=== PATIENT | female | born 1995 | race Caucasian/White ===

== ENCOUNTER → 2019-03-29 07:51 | Outpatient (BNVA) | payer MEDICARE, MEDICAID, SELFPAY | PROVIDERS: Family Provider Nurse Practitioner; PCP Specialist; Referring Provider Nurse Practitioner Family; Visit Provider Specialist | DX: R20.0 Anesthesia of skin (principal); G56.22 Lesion of ulnar nerve, left upper limb | CPT/HCPCS: 95908 ==

== ENCOUNTER 2019-04-13 14:56 | Outpatient (RCR) | payer MEDICARE, MEDICAID, SELFPAY | END 2019-04-14 23:59 | disposition home or self-care (01) | LOC: SOT 14:56 | PROVIDERS: Family Provider Nurse Practitioner; PCP Specialist; Referring Provider Nurse Practitioner Family; Visit Provider Nurse Practitioner Family | DX: R20.2 Paresthesia of skin (principal) | CPT/HCPCS: 97165 ==

== ENCOUNTER 2019-04-15 06:00 | Outpatient (RCR) | payer MEDICARE, MEDICAID, SELFPAY | END 2019-05-01 23:00 | disposition home or self-care (01) | LOC: SOT 06:00 | PROVIDERS: Family Provider Nurse Practitioner; PCP Specialist; Referring Provider Nurse Practitioner Family; Visit Provider Nurse Practitioner Family | DX: R20.2 Paresthesia of skin (principal) | CPT/HCPCS: 97110 ==

== ENCOUNTER 2019-10-15 17:23 | Emergency (ER) | payer MEDICARE, MEDICAID, SELFPAY ==
[2019-10-15 17:44] VITALS: BP 109/81; PULSE 109; RESP 18; TEMP 36.9; O2SAT 99; BMI 20.7
[2019-10-15 18:05] VITALS: BP 117/94; PULSE 104; RESP 19; O2SAT 100
--- NOTE | 2019-10-15 18:10 | XRR_ITS ---
PROCEDURE INFORMATION: Exam: XR Chest, 1 View Exam date and time: 10/15/2019 6:12 PM Age: 24 years old Clinical indication: Chest pain; Type not specified; Additional info: Cp TECHNIQUE: Imaging protocol: XR of the chest Views: 1 view. COMPARISON: CR Chest 2 views* [id number] 10/02/2014 1:35 PM FINDINGS: Lungs: Unremarkable. No consolidation. Pleural space: Unremarkable. No pleural effusion. No pneumothorax. Heart/Mediastinum: Unremarkable. No cardiomegaly. Bones/joints: Unremarkable. XR/XR chest 1V portable [id number] IMPRESSION: No acute findings.
--- NOTE | 2019-10-15 18:11 | ECG_ITS ---
[facility] Test Date: 2019-10-15 Pat Name: Yossi Schumacher Department: Room: Gender: Female Manager Drug: : 1995 Requested By: Sandra Bell Order Number: [id number] Barton MD: Riaz Painter M.D. Measurements Intervals [place] Rate: 112 P: 63 TN: 92 QRS: -11 QRSD: 107 T: 97 QT: 288 QTc: 395 Interpretive Statements SINUS TACHYCARDIA WITH SHORT TN INTERVAL. Some features of WPW LOW QRS VOLTAGE IN PRECORDIAL LEADS [QRS DEFLECTION < 1.0 mV IN CHEST LEADS] POSSIBLE RIGHT VENTRICULAR CONDUCTION DELAY [RSR (QR) IN V1/V2] LEFT VENTRICULAR HYPERTROPHY AND ST-T CHANGE [VOLTAGE CRITERIA PLUS ST/T ABNORMALITY] LATERAL MYOCARDIAL INFARCTION [40+ ms Q WAVE AND/OR ST/T ABNORMALITY IN I/aVL/V5/V6], OF INDETERMINATE AGE INTERPRETATION BASED ON A DEFAULT AGE OF 40 YEARS Compared to ECG 10/02/2014 12:16:00 Low QRS voltage now present ST (T wave) deviation still present Myocardial infarct finding still present Electronically Signed On 10-16-2019 9:29:09 CDT by Riaz Painter M.D. [id number]
[2019-10-15 18:25] LABS: Basophils # 0.1 10^3/uL (0.0-0.1); Basophils % 0.4 %; Eosinophils # 0.4 10^3/uL (0.0-0.8); Eosinophils % 2.5 %; Hematocrit 40.5 % (37.0-47.0); Hemoglobin 13.2 g/dL (11.5-15.3); Lymphocytes # 2.7 10^3/uL (0.8-4.8); Lymphocytes % 15.6 %; Mean Corpuscular HGB Conc 32.6 g/dL (30.0-36.0); Mean Corpuscular Hemoglobin 30.9 pg (28.0-34.0); Mean Corpuscular Volume 94.8 fL (81-99); Mean Platelet Volume 11.4 fL (7.4-10.4); Neutrophils # 12.82 10^3/uL (1.8-7.7); Nucleated Red Blood Cells % 0 %; Platelet Count 254 10^3/cmm (130-400); Red Blood Count 4.27 10^6/uL (4.1-5.3); White Blood Count 17.1 10^3/uL (4.0-10.0)
[2019-10-15 18:42] LABS: D Dimer 0.42 ug/mIFEU (0-0.59)
[2019-10-15 18:43] LABS: Alanine Aminotransferase 13 U/L (0-33); Albumin Level 4.7 g/dL (3.5-5.2); Alkaline Phosphatase 66 IU/L (35-105); Aspartate Amino Transferase 19 U/L (0-32); Blood Urea Nitrogen 15 mg/dL (6-20); Calcium 9.1 mg/dL (8.5-10.5); Carbon Dioxide 27 mmol/L (22-29); Chloride 102 mmol/L (98-107); Globulin 2.7 g/dL (1.3-4.6); Glomerular Filtration Rate 121.8 mL/min (90-130); Glucose 99 mg/dL (65-115); Magnesium 2.2 mg/dL (1.7-2.3); Osmolality Calculated 280 mOsm/kg (285-295); Sodium 137 mmol/L (136-145); Total Bilirubin 0.2 mg/dL (0.15-1.2); Total Protein 7.4 g/dL (6.6-8.7)
[2019-10-15 18:44] LABS: Troponin(5th) Baseline 6 ng/L (0-10)
[2019-10-15 18:51] LABS: Urine Color Yellow (Yellow)
[2019-10-15 18:52] LABS: Add Urine Microscopic? YES; Bilirubin Urine Neg (NEGATIVE); Blood Urine Neg (Negative); Glucose Urine UA Norm (Normal); Ketones Urine Negative (Negative); Leukocyte Esterase Urine Negative (Negative); Nitrate Urine Negative (Negative); Protein Urine Neg (Negative); Sulfosalicylic Acid Urine Negative (Negative); Urine Appearance SL Hazy (CLEAR); Urobilinogen Urine 1 mg/dL (Negative); pH Urine 8 (5-7)
--- NOTE | 2019-10-15 18:52 | ED_ITS ---
HPI - Chest Pain General: Chief Complaint: Chest Pain Stated Complaint: cp Time Seen by Provider: 10/15/19 18:04 Source: patient and family Mode of arrival: ambulatory Limitations: no limitations History of Present Illness: HPI narrative: Yossi is a nice 24-year-old female brought in by her grandmother with a report of upper chest pain. The patient states she has the pain when she moves in certain positions and when she takes a deep breath. She does not have any other associated symptoms such as radiation of her pain, diaphoresis, nausea/vomiting, worsening with exertion, syncope or near syncope, or any other associated symptoms. When asked if she has any trauma she denies any injury but states the day before she was helping move some furniture in the home. She denies falling or injuring this area. She does states she has more pain when she moves her chest in certain positions and again when she takes a deep breath. She denies being on control or having any leg pain or swelling. She denies any cough, fever, chills or hemoptysis. She denies have anything like this before and she is not tried any thing for this at home. Her symptoms started today. Associated symptoms: Deny abdominal pain, diaphoresis, dyspnea, fever(s), nausea, palpitations, syncope or vomiting Review of Systems Const: Denies: fever(s), chills, body aches, fatigue, malaise or diaphoresis Eyes: Denies: change in vision, blurry vision, blind spots, photophobia, eye discharge or eye redness ENMT: Denies: throat pain, odynophagia, hoarseness, swelling of lips/tongue, oral sores, ear or mastoid pain, ear discharge, change in hearing or nasal discharge Card: Reports: chest pain; Denies: palpitations, irregular heart rhythm, edema, lightheadedness, syncope, pre-syncope, dyspnea on exertion or orthopnea Resp: Denies: dyspnea, productive cough, non-productive cough, wheezing, hemoptysis or chest congestion GI: Denies: abdominal pain, nausea, vomiting, hematemesis, coffee ground emesis, heartburn, diarrhea, constipation, GI cramping, hematochezia or melena : Denies: flank pain, dysuria, urinary frequency, urinary urgency or hematuria Musc: Denies: neck pain, back pain, extremity pain, extremity swelling, joint pain, joint swelling, joint redness, joint warmth or joint stiffness Skin/Breast: Denies: rash, pruritus, erythema, skin tenderness or jaundice Neuro: Denies: headache(s), numbness in extremities, weakness in extremities, sensory changes, lack of coordination, difficulty walking, dizziness, vertigo, confusion, Slurred speech present or seizure-like activity Junior/Lymph: Denies: easy bruising, easy bleeding, petechiae, purpura or enlarged lymph nodes All/Imm: Denies: urticaria, throat swelling, tongue swelling, facial swelling or acute wheezing PFSH ED PFSH: Medical History Asperger syndrome Ulnar neuropathy at elbow of left upper extremity Surgical History No pertinent past surgical history Social History Smoking and tobacco status: never smoked Substance/Drug Use: never Physical Exam Const: COMMON NORMALS: no acute distress, patient oriented x3, no limitations, healthy appearing and well nourished GENERAL APPEARANCE: cooperative, well kempt and well developed HENMT: COMMON NORMALS: normocephalic, atraumatic, external ears normal, EAC's normal and Normal external nose present HEAD & SCALP: normal to inspection, normocephalic and atraumatic FACE & SINUS: normal facial exam and face symmetric NOSE: Normal external nose present and Normal nares present EXTERNAL EAR: Yes external ears normal EXTERNAL AUDITORY CANAL: EAC's normal MOUTH: Normal oral and palatal mucosa present, lip normal and tongue normal Eye: COMMON NORMALS: Equal, round and reactive pupils present and conjunctivae normal GENERAL EYE: appearance normal, both eyes and all related structures ALIGNMENT: Yes alignment normal PERIORBITAL: periorbital findings normal EYELID: eyelids normal CONJUNCTIVA: Yes conjunctivae normal SCLERA: sclerae normal PUPIL: Yes Equal, round and reactive pupils present Neck/C-Spine: COMMON NORMALS: full ROM, no lymphadenopathy, supple, no meningeal signs and no JVD GENERAL: Yes normal visual inspection and Yes trachea midline Chest: COMMONS NORMALS: normal inspection of the chest and normal palpation of entire chest wall (Patient's area of pain is the manubrium but pain cannot be reproduced with palpation.) Resp: COMMON NORMALS: normal respiratory effort, No retractions and No use of accessory muscles EFFORT & INSPECTION: Yes able to speak in complete sentences and Yes symmetric chest movement AUSCULTATION: no crackles, no r ales, no rhonchi and no wheezes Cardio: COMMON NORMALS: no JVD, regular rate, regular rhythm, S1 normal heart sound present and S2 normal heart sound present RATE: regular rate RHYTHM: regular rhythm HEART SOUNDS: S1 normal heart sound present, S2 normal heart sound present, no click, no gallops, no murmurs, no rubs and abnormal split S2 GI: COMMON NORMALS: Soft to palpation and No hepatosplenomegaly present PALPATION: Yes Soft to palpation, No Tenderness to palpation present (GI), No Guarding due to palpation present (GI), No Rigid due to palpation, Yes No hepatosplenomegaly present, No Hernia present, No Palpable mass present and No Pulsatile mass present : COMMON NORMALS: Yes no CVA tenderness BLADDER/KIDNEY EXAM: Yes no CVA tenderness EXTERNAL FEMALE EXAM: No Hernia present Back/Pelvis: COMMON NORMALS: no CVA tenderness, thoracic and lumbar spine normal to inspection, no thoracic nor lumbar tenderness and thoraco-lumbar ROM normal Extremity: COMMON NORMALS: normal to inspection, full ROM, capillary refill normal, no joint enlargement, no clubbing, cyanosis or edema and no calf tend erness Neuro: COMMON NORMALS: patient oriented x3, CN's II-XII intact bilaterally, moves all extremities, no focal motor deficits and no sensory deficits noted MENINGEAL SIGNS: Yes no meningeal signs SPEECH: speech normal Psych: COMMON NORMALS: mental status grossly normal, Normal thought process present, cooperative, normal affect, speech normal and activity/motor behavior normal APPEARANCE: Yes well kempt SPEECH: Yes normal speech THOUGHT PROCESS: Normal thought process present Skin: COMMON NORMALS: no rashes or lesions noted, turgor normal, no jaundice, no petechiae and no mottling GENERAL SKIN EXAM: no rashes or lesions noted and turgor normal Course Vital Signs: Vital signs: Vital Signs Temperature 98.4 F 10/15/19 17:44 Pulse Rate 70 10/15/19 20:42 Respiratory Rate 16 10/15/19 20:42 Blood Pressure 119/87 10/15/19 20:42 Pulse Oximetry 97 10/15/19 20:42 MDM - Chest Pain MDM Narrative: Medical decision making narrative: Yossi is a nice 24-year-old female who comes in complaining of pain when she takes a deep breath and moves her chest in certain positions. She has no history of trauma but was lifting heavy furniture the day before. Patient has minimal if any pain at rest. She has no cough, no fever, no shortness of breath or any other cardiac sounding symptoms. Her pain is described as sharp. Her chest x-ray was abnormal and evaluating her chest x-ray her clavicles looked displaced but when I went back to reexamine her she did not have reproduction of her pain with pressure on her chest. 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 There is no sign of acute problem but there was a suggestion of development of problems later in life. Did check the patient's left pulse and it was found to be normal. I referred the patient to Dr. Orellana and he can return opinion as to when and what will need to be done in regards to this. Patient does not have anything cardiac sounding but her EKGs were performed. 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 The patient does not have a history of tachydysrhythmias, syncope or near syncope. Dr. Painter did review the first EKG and thought that she could follow-up on an outpatient basis. I have reviewed all this with the patient and her grandmother and they are in agreement. They will follow-up as directed or return here if needed. At this time though she is feeling better and is ready to go home. I did review with him the signs and symptoms for which to return to the hospital and they ag ree to do so if necessary. Otherwise they are very grateful and ready to follow-up on an outpatient basis. Lab Data: Attestation: I reviewed the patient's lab results. Labs: Lab Results 10/15/19 10/15/19 10/15/19 Range/Units 18:05 18:12 18:12 WBC 17.1 H (4.0-10.0) 10^3/ uL RBC 4.27 (4.1-5.3) 10^6/u L Hgb 13.2 (11.5-15.3) g/dL Hct 40.5 (37.0-47.0) % MCV 94.8 (81-99) fL MCH 30.9 (28.0-34.0) pg MCHC 32.6 (30.0-36.0) g/dL RDW 12.0 L (12.1-15.1) % Plt Count 254 (130-400) 10^3/c mm MPV 11.4 H (7.4-10.4) fL Neut % (Auto) 75.0 % Lymph % (Auto) 15.6 % [place] % (Auto) 6.0 % Eos % (Auto) 2.5 % Baso % (Auto) 0.4 % Neut # (Auto) 12.82 H (1.8-7.7) 10^3/u L Lymph # (Auto) 2.7 (0.8-4.8) 10^3/u L [place] # (Auto) 1.0 H (0.2-0.9) 10^3/u L Eos # (Auto) 0.4 (0.0-0.8) 10^3/u L Baso # (Auto) 0.1 (0.0-0.1) 10^3/u L Nucleated RBC % (a uto) 0 % Nucleated RBCs # 0.0 /100WBC D-Dimer 0.42 (0-0.59) ug/mIFE U Sodium (136-145) mmol/L Potassium (3.5-5.1) mmol/L Chloride (98-107) mmol/L Carbon Dioxide (22-29) mmol/L Anion Gap (5-19) BUN (6-20) mg/dL Creatinine (0.5-0.9) mg/dL GFR Calculation (90-130) mL/min Glucose (65-115) mg/dL Calculated Osmolal ity (285-295) mOsm/k g Lactic Acid (0.5-2.2) mmol/L Calcium (8.5-10.5) mg/dL Magnesium (1.7-2.3) mg/dL Total Bilirubin (0.15-1.2) mg/dL AST (0-32) U/L ALT (0-33) U/L Alkaline Phosphata se (35-105) IU/L Troponin T Baselin e (0-10) ng/L Total Protein (6.6-8.7) g/dL Albumin (3.5-5.2) g/dL Globulin (1.3-4.6) g/dL HCG, Qual Negative (Negative) Urine Color (Yellow) Urine Appearance (CLEAR) Urine pH (5-7) Ur Specific Gravit y (1.005-1.030) Urine Protein (Negative) Urine Glucose (UA) (Normal) Urine Ketones (Negative) Urine Blood (Negative) Urine Nitrate (Negative) Urine Bilirubin (NEGATIVE) Prot Sulfosalicyli c Acd (Negative) Urine Urobilinogen (Negative) mg/dL Ur Leukocyte Diane ase (Negative) Urine RBC (0-2) /hpf Urine WBC (0-5) /hpf Ur Squamous Epith Cells (0-5) Amorphous Sediment Urine Bacteria (NONE) Urine Mucus 10/15/19 10/15/19 10/15/19 Range/Units 18:12 18:12 18:25 WBC (4.0-10.0) 10^3/ uL RBC (4.1-5.3) 10^6/u L Hgb (11.5-15.3) g/dL Hct (37.0-47.0) % MCV (81-99) fL MCH (28.0-34.0) pg MCHC (30.0-36.0) g/dL RDW (12.1-15.1) % Plt Count (130-400) 10^3/c mm MPV (7.4-10.4) fL Neut % (Auto) % Lymph % (Auto) % [place] % (Auto) % Eos % (Auto) % Baso % (Auto) % Neut # (Auto) (1.8-7.7) 10^3/u L Lymph # (Auto) (0.8-4.8) 10^3/u L [place] # (Auto) (0.2-0.9) 10^3/u L Eos # (Auto) (0.0-0.8) 10^3/u L Baso # (Auto) (0.0-0.1) 10^3/u L Nucleated RBC % (a uto) % Nucleated RBCs # /100WBC D-Dimer (0-0.59) ug/mIFE U Sodium 137 (136-145) mmol/L Potassium 4.0 (3.5-5.1) mmol/L Chloride 102 (98-107) mmol/L Carbon Dioxide 27 (22-29) mmol/L Anion Gap 12.0 (5-19) BUN 15 (6-20) mg/dL Creatinine 0.6 (0.5-0.9) mg/dL GFR Calculation 121.8 (90-130) mL/min Glucose 99 (65-115) mg/dL Calculated Osmolal ity 280 L (285-295) mOsm/k g Lactic Acid (0.5-2.2) mmol/L Calcium 9.1 (8.5-10.5) mg/dL Magnesium 2.2 (1.7-2.3) mg/dL Total Bilirubin 0.2 (0.15-1.2) mg/dL AST 19 (0-32) U/L ALT 13 (0-33) U/L Alkaline Phosphata se 66 (35-105) IU/L Troponin T Baselin e 6 (0-10) ng/L Total Protein 7.4 (6.6-8.7) g/dL Albumin 4.7 (3.5-5.2) g/dL Globulin 2.7 (1.3-4.6) g/dL HCG, Qual (Negative) Urine Color Yellow (Yellow) Urine Appearance Sl hazy (CLEAR) Urine pH 8 H (5-7) Ur Specific Gravit y 1.010 (1.005-1.030) Urine Protein Neg (Negative) Urine Glucose (UA) Norm (Normal) Urine Ketones Negative (Negative) Urine Blood Neg (Negative) Urine Nitrate Negative (Negative) Urine Bilirubin Neg (NEGATIVE) Prot Sulfosalicyli c Acd Negative (Negative) Urine Urobilinogen 1 H (Negative) mg/dL Ur Leukocyte Diane ase Negative (Negative) Urine RBC None (0-2) /hpf Urine WBC None (0-5) /hpf Ur Squamous Epith Cells 0-4 H (0-5) Amorphous Sediment Not Reportable Urine Bacteria 1+ H (NONE) Urine Mucus 1+ 08/02/20 Range/Units 18:42 WBC (4.0-10.0) 10^3/ uL RBC (4.1-5.3) 10^6/u L Hgb (11.5-15.3) g/dL Hct (37.0-47.0) % MCV (81-99) fL MCH (28.0-34.0) pg MCHC (30.0-36.0) g/dL RDW (12.1-15.1) % Plt Count (130-400) 10^3/c mm MPV (7.4-10.4) fL Neut % (Auto) % Lymph % (Auto) % [place] % (Auto) % Eos % (Auto) % Baso % (Auto) % Neut # (Auto) (1.8-7.7) 10^3/u L Lymph # (Auto) (0.8-4.8) 10^3/u L [place] # (Auto) (0.2-0.9) 10^3/u L Eos # (Auto) (0.0-0.8) 10^3/u L Baso # (Auto) (0.0-0.1) 10^3/u L Nucleated RBC % (a uto) % Nucleated RBCs # /100WBC D-Dimer (0-0.59) ug/mIFE U Sodium (136-145) mmol/L Potassium (3.5-5.1) mmol/L Chloride (98-107) mmol/L Carbon Dioxide (22-29) mmol/L Anion Gap (5-19) BUN (6-20) mg/dL Creatinine (0.5-0.9) mg/dL GFR Calculation (90-130) mL/min Glucose (65-115) mg/dL Calculated Osmolal ity (285-295) mOsm/k g Lactic Acid 0.6 (0.5-2.2) mmol/L Calcium (8.5-10.5) mg/dL Magnesium (1.7-2.3) mg/dL Total Bilirubin (0.15-1.2) mg/dL AST (0-32) U/L ALT (0-33) U/L Alkaline Phosphata se (35-105) IU/L Troponin T Baselin e (0-10) ng/L Total Protein (6.6-8.7) g/dL Albumin (3.5-5.2) g/dL Globulin (1.3-4.6) g/dL HCG, Qual (Negative) Urine Color (Yellow) Urine Appearance (CLEAR) Urine pH (5-7) Ur Specific Gravit y (1.005-1.030) Urine Protein (Negative) Urine Glucose (UA) (Normal) Urine Ketones (Negative) Urine Blood (Negative) Urine Nitrate (Negative) Urine Bilirubin (NEGATIVE) Prot Sulfosalicyli c Acd (Negative) Urine Urobilinogen (Negative) mg/dL Ur Leukocyte Diane ase (Negative) Urine RBC (0-2) /hpf Urine WBC (0-5) /hpf Ur Squamous Epith Cells (0-5) Amorphous Sediment Urine Bacteria (NONE) Urine Mucus Imaging Data^: CXR: My impression: No pneumothorax or hemothorax. Normal heart size and normal mediastinum. Questionable mid clavicle displacement on the left. EKG Data^: EKG 1: Attestation: I personally reviewed and interpreted this EKG as follows: EKG interpretation date: 10/15/19 EKG interpretation time: 17:51 Interpretation: Sinus tachycardia at 112 beats a minute, short DE interval, delta wave present, incomplete right bundle branch block, no acute ST or T wave changes. 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 EKG 2: Attestation: I personally reviewed and interpreted this EKG as follows: EKG interpretation date: 10/15/19 EKG interpretation time: 20:30 Interpretation: Normal sinus rhythm at 86 beats a minute, short DE interval, delta wave present, Q waves inferiorly, no acute ST or T wave changes. Discharge Plan Discharge Patient Disposition: Home Clinical Impression: Xtgsk-Ehsmxween-Haiba (WPW) pattern Chest pain Qualifiers: Chest pain type: chest pain on breathing Qualified Code(s): R07.1 - Chest pain on breathing Condition: Stable Prescriptions: [place] 5-325 mg tablet 1 tab PO Q6H PRN (Reason: pain) 5 Days Qty: 10 RF: 0 Motrin IB 200 mg tablet 400 mg PO Q6H PRN (Reason: pain) Qty: 60 RF: 0 No Action Strattera 60 mg Capsule 60 mg PO DAILY RF: 0 Discharge Orders: Discharge Order (Routine); Ordered 10/15/19 Ordered By: Sandra Hurtado Referrals: OLIVIA WILD DO [Primary Care Provider] - Riaz Painter MD [Physician] - 1-3 days Kenneth Orellana MD [Physician] - 1-3 days Discharge Diet: Usual diet Discharge Activity: Increase activity as tolerated Patient Instructions: Chest Pain (ED) Activity Restrictions/Additional Instructions: Please return to the ER immediately for any of the signs or symptoms listed on your discharge instruction sheets, worsening/changing of your symptoms, you are not getting better as quickly as expected, or for ANY other cause or concerns. Return to the ER for shortness of breath, worsening pain, numbness or weakness in your arms, or for any other cause for concern. Be certain to follow-up with Dr. Orellana as soon as possible for further evaluation and care. Be certain to follow-up with Dr. Painter concerning your abnormal EKG. If you develop fainting spells or near fainting spells or a rapid heartbeat please return to the ER immediately for recheck. Discharge Date/Time: 10/15/19 20:43 Coding Level of Care Code ED Environmental Law Professor for Mamta Fwyaneli Exam Comprehensive
[2019-10-15 18:53] LABS: Bacteria Urine 1+; Mucus Urine 1+; Squamous Epithelial Cell Urine 0-4 (0-5)
[2019-10-15 18:54] LABS: Add Urine Culture? No
[2019-10-15] MEDS: sodium chloride 0.9% 1,000 ML 100 ML IV (18:56)
--- NOTE | 2019-10-15 18:56 | CTR_ITS ---
PROCEDURE INFORMATION: Exam: CT Chest With Contrast Exam date and time: 10/15/2019 7:15 PM Age: 24 years old Clinical indication: Sternal or substernal pain; Patient HX: C/O sternal cp today; Additional info: Trauma TECHNIQUE: Imaging protocol: Computed tomography of the chest with intravenous contrast. Radiation optimization: All CT scans at this facility use at least one of these dose optimization techniques: automated exposure control; mA and/or kV adjustment per patient size (includes targeted exams where dose is matched to clinical indication); or iterative reconstruction. Contrast material: OMNI 300; Contrast volume: 75 ml; Contrast route: INTRAVENOUS (IV); COMPARISON: CR (CHEST, ) 10/15/2019 6:22 PM RADIATION DOSE METRICS: Total DLP (mGy-cm): 170.21 FINDINGS: Lungs: Unremarkable. No consolidation. No masses. Pleural space: Unremarkable. No pneumothorax. No pleural effusion. Heart: Unremarkable. No cardiomegaly. No pericardial effusion. Mediastinal space: There is no fluid or induration of the fat adjacent to these structures to indicate leak, hematoma or reactive changes at this time. Aorta: Unremarkable. No aortic aneurysm. Lymph nodes: Unremarkable. No enlarged lymph nodes. Liver: A few tiny hepatic hypodensities are noted and are too small to characterize. 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 The sternum is enlarged and has a broad flat appearance with the distal foramen. The manubrium is also enlarged, thickened and tilted posteriorly. 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 There is also contour deformity of the chest wall with outward bulging of the right ribs at the costochondral junction due to the tilting of the sternum. No acute rib fracture is identified. No scoliosis. The thoracic vertebral body heights are maintained. Note is made that the posterior depression of the manubrium results in marked posterior displacement of the left sternoclavicular joint which results in posterior displacement of the left subclavian vein and posterior displacement and kinking of the aortic arch as seen on series 2, images 12-15. Soft tissues: Unremarkable. CT/CT chest w con* [id number] IMPRESSION: 1. 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 No acute bony abnormality. 2. The marked deformity of the sternum especially the left sternoclavicular joint and manubrium results in posterior displacement and mass effect on the left subclavian vein and aortic arch. No evidence of acute abnormality involving the structures but consultation with cardiothoracic surgeon is recommended given that this may eventually create problems over time. Radiation Dose CTDIVOL = (mGy): DLP = 170.21 (mGy-cm)
[2019-10-15 19:05] LABS: Lactic Sepsis W/Reflex 0.6 mmol/L (0.5-2.2)
[2019-10-15 19:10] LABS: HCG, Serum Qual Negative (Negative)
[2019-10-15] MEDS: iohexol 300 mg/mL 100 mL Btl IV (19:33)
--- NOTE | 2019-10-15 20:11 | ECG_ITS ---
[facility] Test Date: 2019-10-15 Pat Name: Yossi Schumacher Department: Room: Gender: Female Licensed Marriage And Family Therapist: : 1995 Requested By: Sandra Bell Order Number: [id number] Barton MD: Riaz Painter M.D. Measurements Intervals [place] Rate: 86 P: 55 GA: 101 QRS: -28 QRSD: 102 T: 81 QT: 416 QTc: 498 Interpretive Statements SINUS RHYTHM WITH SHORT GA INTERVAL. Some features of WPW POSSIBLE RIGHT VENTRICULAR CONDUCTION DELAY [RSR (QR) IN V1/V2] LEFT VENTRICULAR HYPERTROPHY AND ST-T CHANGE [VOLTAGE CRITERIA PLUS ST/T ABNORMALITY] Compared to ECG 10/15/2019 17:51:43 Sinus tachycardia no longer present Myocardial infarct finding no longer present ST (T wave) deviation still present Electronically Signed On 10-16-2019 9:46:00 CDT by Riaz Painter M.D. [id number]
[2019-10-15 20:42] VITALS: BP 119/87; PULSE 70; RESP 16; O2SAT 97
--- NOTE | 2019-10-16 14:44 | PC.SOCIAL ---
Spoke with Maxine at [facility] regarding referral for Dr Solis and for Dr Painter. Appointments scheduled. Dr Solis 10/19/2019 8:30am and Dr Painter Nov 20 at 10:30am. Left message for patient. Mom returned call and dates/ times of appointments provided with patient in the background. No further questions received.
--- NOTE | 2019-10-20 10:32 | DCPLANNER ---
Patient did attend appointment scheduled for 10.19.[address] Orellana at [facility].
--- NOTE | 2019-12-07 08:02 | DCPLANNER ---
Patient had a follow up appointment scheduled for 11.21.19 [address] [facility] with [address]. 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
== END 2019-10-15 20:43 | disposition home or self-care (01) ==
PROVIDERS: Emergency Provider Emergency Medicine; PCP Internal Medicine
DX: R07.1 Chest pain on breathing (principal); I45.6 Pre-excitation syndrome; F84.5 Asperger's syndrome
CPT/HCPCS: 12345; 71045; 71260; 80053; 81001; 81003; 83605; 83735; 84484; 84703; 85025; 85378; 93005; 96361; 96374; 96375; 99282; 99284; J7030; Q9967

== ENCOUNTER 2019-11-09 07:17 | Outpatient (CLI) | payer MEDICARE, MEDICAID, SELFPAY ==
--- NOTE | 2019-11-09 07:15 | USCV_ITS ---
Yossi Schumacher Age: 24 Gender: F : 1995 Exam Date: 11/09/2019 07:34 Ordering Phys: Kenneth Orellana MD (Andy) ([email or web address]) Technologist: Michelle Hendrix [place]am [place] [facility] [place]: PECTUS CARINATUM BP: 117 / 78 HR: 115 Rhythm: Sinus Technical Quality: Very technically difficult study MEASUREMENTS (Male / Female) Normal Values 2D ECHO LV Diastolic Diameter PLAX 3.0 cm 4.2 - 5.9 / 3.9 - 5.3 cm LV Systolic Diameter PLAX 2.2 cm IVS Diastolic Thickness 0.8 cm 0.6 - 1.0 / 0.6 - 0.9 cm IVS Systolic Thickness 1.2 cm LVPW Diastolic Thickness 0.8 cm 0.6 - 1.0 / 0.6 - 0.9 cm LVPW Systolic Thickness 1.0 cm LVOT Diameter 2.0 cm LV Ejection Fraction 2D Teich 53.6 % LA Diameter 1.1 cm Aorta at Sinotubular Diameter 1.6 cm M-MODE LV Diastolic Diameter MM 3.2 cm 4.2 - 5.9 / 3.9 - 5.3 cm LV Systolic Diameter MM 2.4 cm LV Ejection Fraction MM Teich 50.2 % IVS Diastolic Thickness MM 0.9 cm 0.6 - 1.0 / 0.6 - 0.9 cm IVS Systolic Thickness MM 1.3 cm LVPW Diastolic Thickness MM 0.7 cm 0.6 - 1.0 / 0.6 - 0.9 cm LVPW Systolic Thickness MM 1.1 cm RV Diastolic Diameter MM 1.4 cm MV E Point Septal Separation 0.4 cm DOPPLER TV Peak E Velocity 44.0 cm/s PV Peak Velocity 55.0 cm/s RV Acceleration Time 0.2 s RV Ejection Time 0.3 s RV AcT/ET 0.6 FINDINGS Left Ventricle Probably normal left ventricular size and systolic function. Left ventricular ejection fraction estimated at 55%. This study is inadequate for regional wall motion abnormality. Right Ventricle Right ventricle not well visualized. Probably dilated right ventricle. Normal right ventricle systolic function. Right Atrium Right atrium not well visualized. Left Atrium Left atrium not well visualized. Mitral Valve Thickened mitral valve. Aortic Valve Aortic valve not well visualized. Tricuspid Valve Tricuspid valve not well visualized. Pulmonic Valve Pulmonic valve not well visualized. Pericardium No pericardial effusion. Aorta Aorta not well visualized. CONCLUSIONS 1. This is a technically very difficult study with off axis images. 2. Probably normal left ventricular size and systolic function. Left ventricular ejection fraction estimated at 55%. This study is inadequate for regional wall motion abnormality. 3. Probably dilated right ventricle. Normal right ventricle systolic function. 4. No prior similar studies to compare. Italia Matamoros MD (Electronically Signed) Final Date: 12 November 2019 16:41 S
== END 2019-11-09 07:18 | disposition home or self-care (01) ==
PROVIDERS: PCP Internal Medicine; Visit Provider Thoracic Surgery (Cardiothoracic Vascular Surgery)
DX: R07.9 Chest pain, unspecified (principal); Q67.7 Pectus carinatum
CPT/HCPCS: 93306

== ENCOUNTER 2021-06-29 09:12 | Emergency (ER) | payer MEDICARE, MEDICAID, SELFPAY ==
[2021-06-29 09:25] VITALS: BP 98/70; PULSE 110; RESP 18; TEMP 36.6; O2SAT 99
[2021-06-29 09:28] VITALS: RESP 16; O2SAT 96
--- NOTE | 2021-06-29 09:38 | W.ED.NAVMDI ---
Documented by User: LAMONT Waldrop 06/29/21 12:42 HPI - Nausea/Vomiting/Diarrhea General: Chief complaint: Abdominal Pain Stated complaint: vomiting Time Seen by Provider: 06/29/21 09:20 History of Present Illness: Patient said she felt fine up to yesterday when she started vomiting and feeling nauseated. She not able to hold food down and not been able drink water today. Said she had some diarrhea also today. Denies any fever chills or other related problems. Has not had exposure to anyone else this been sick. Does have some dizziness when she stands. 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 Surgical History No pertinent past surgical history Family History Other Psychiatric illness Denies family history of Diabetes CAD (coronary artery disease) Dementia Hyperlipidemia Chronic kidney disease (CKD) Anesthesia complication Bleeding disorder Family history of premature coronary artery disease Lung disease Cancer Hypertension Stroke Social History Smoking and tobacco status: never smoked Physical Exam Const: COMMON NORMALS: no acute distress, patient oriented x3 and alert HENMT: COMMON NORMALS: normocephalic and external ears normal HEAD & SCALP: normocephalic EXTERNAL EAR: Yes external ears normal Eye: COMMON NORMALS: EOMs intact bilaterally Neck/C-Spine: COMMON NORMALS: no JVD Resp: COMMON NORMALS: normal respiratory effort and No use of accessory muscles Cardio: COMMON NORMALS: no JVD GI: INSPECTION: Yes normal to inspection AUSCULTATION: Yes normoactive bowel sounds PALPATION: Yes Tenderness to palpation present (GI) (Generalized) PERCUSSION: dullness to percussion Extremity: COMMON NORMALS: normal to inspection and full ROM Neuro: COMMON NORMALS: patient oriented x3 SENSORIUM/ORIENTATION: Yes alert Psych: COMMON NORMALS: mental status grossly normal Skin: COMMON NORMALS: no rashes or lesions noted GENERAL SKIN EXAM: no rashes or lesions noted Course Vital Signs: Vital signs: Vital Signs Temperature 97.9 F 06/29/21 09:25 Pulse Rate 96 06/29/21 12:52 Respiratory Rate 18 06/29/21 12:52 Blood Pressure 105/76 06/29/21 12:52 Pulse Oximetry 95 06/29/21 12:52 MDM - Nausea/Vomiting/Diarrhea Medical Decision Making Presents with signs symptoms gastroenteritis. Laboratory studies were done and IV fluid was given. Patient had elevated white count rest laboratory studies were noncontributory except that she was dehydrated. Patient was given IV Zofran and fluids and she did well with that. Prescription was given for home to help with emesis follow-up with primary care provider and push fluids. Lab Data : 06/29/21 10:37 06/29/21 10:37 Radiology Impressions Abdomen/Pelvis CT 06/29/21 11:01 IMPRESSION: No CT evidence of acute intra-abdominal or pelvic pathology. Laboratory Results WBC 21.6 10^3/uL (4.0-10.0) H 06/29/21 10:37 RBC 5.97 10^6/uL (4.1-5.3) H 06/29/21 10:37 Hgb 18.7 g/dL (11.5-15.3) H 06/29/21 10:37 Hct 56.7 % (37.0-47.0) H 06/29/21 10:37 MCV 95.0 fl (81-99) 06/29/21 10:37 MCH 31.3 pg (28.0-34.0) 06/29/21 10:37 MCHC 33.0 g/dL (30.0-36.0) 06/29/21 10:37 RDW 12.2 % (12.1-15.1) 06/29/21 10:37 Plt Count 240 10^3/cmm (130-400) 06/29/21 10:37 MPV 12.3 fL (7.4-10.4) H 06/29/21 10:37 Neut % (Auto) 95.0 % 06/29/21 10:37 Lymph % (Auto) 2.2 % 06/29/21 10:37 [place] % (Auto) 2.0 % 06/29/21 10:37 Eos % (Auto) 0.0 % 06/29/21 10:37 Baso % (Auto) 0.2 % 06/29/21 10:37 Neut # (Auto) 20.53 10^3/uL (1.8-7.7) H 06/29/21 10:37 Lymph # (Auto) 0.5 10^3/uL (0.8-4.8) L 06/29/21 10:37 [place] # (Auto) 0.4 10^3/uL (0.2-0.9) 06/29/21 10:37 Eos # (Auto) 0.0 10^3/uL (0.0-0.8) 06/29/21 10:37 Baso # (Auto) 0.0 10^3/uL (0.0-0.1) 06/29/21 10:37 Nucleated RBC % (auto) 0 % 06/29/21 10:37 Nucleated RBCs # 0.0 /100WBC 06/29/21 10:37 Sodium 136 mmol/L (136-145) 06/29/21 10:37 Potassium 4.5 mmol/L (3.5-5.1) 06/29/21 10:37 Chloride 96 mmol/L (98-107) L 06/29/21 10:37 Carbon Dioxide 23 mmol/L (22-29) 06/29/21 10:37 Anion Gap 21.5 (5-19) H 06/29/21 10:37 BUN 15 mg/dL (6-20) 06/29/21 10:37 Creatinine 0.6 mg/dL (0.5-0.9) 06/29/21 10:37 GFR Calculation 119.9 mL/min (90-130) 06/29/21 10:37 Glucose 131 mg/dL (65-115) H 06/29/21 10:37 Calculated Osmolality 285 mOsm/kg (285-295) 06/29/21 10:37 Calcium 9.7 mg/dL (8.5-10.5) 06/29/21 10:37 Total Bilirubin 0.5 mg/dL (0.15-1.2) 06/29/21 10:37 AST 30 U/L (0-32) 06/29/21 10:37 ALT 25 U/L (0-33) 06/29/21 10:37 Alkaline Phosphatase 102 IU/L (35-105) 06/29/21 10:37 Total Protein 9.5 g/dL (6.6-8.7) H 06/29/21 10:37 Albumin 5.7 g/dL (3.5-5.2) H 06/29/21 10:37 Globulin 3.8 g/dL (1.3-4.6) 06/29/21 10:37 Lipase 25 U/L (13-60) 06/29/21 10:37 HCG, Qual Cancelled 06/29/21 10:37 HCG, Qual Negative (Negative) 06/29/21 10:37 Urine Color Yellow (Yellow) 06/29/21 11:47 Urine Appearance Sl hazy (CLEAR) 06/29/21 11:47 Urine pH 5 (5-7) 06/29/21 11:47 Ur Specific [place] 1.025 (1.005-1.030) 06/29/21 11:47 Urine Protein Neg (Negative) 06/29/21 11:47 Urine Glucose (UA) Norm (Normal) 06/29/21 11:47 Urine Ketones 1+ (Negative) H 06/29/21 11:47 Urine Blood Neg (Negative) 06/29/21 11:47 Urine Nitrate Negative (Negative) 06/29/21 11:47 Urine Bilirubin 1+ (Negative) H 06/29/21 11:47 Urine Urobilinogen Norm mg/dL (Negative) 06/29/21 11:47 Ur Leukocyte Esterase Negative (Negative) 06/29/21 11:47 Urine RBC None /hpf (0-2) 06/29/21 11:47 Urine WBC Rare /hpf (0-5) 06/29/21 11:47 Ur Squamous Epith Cells 5-10 /hpf (0-5) H 06/29/21 11:47 Ur Transition Epith Cell 0-4 /hpf 06/29/21 11:47 Amorphous Sediment Not Reportable 06/29/21 11:47 Urine Bacteria 1+ /hpf (NONE) H 06/29/21 11:47 Urine Mucus 2+ /hpf 06/29/21 11:47 Discharge Plan Discharge Patient Disposition: Home Clinical Impression: Gastroenteritis Condition: Stable Prescriptions: New ondansetron HCl 4 mg tablet 4 mg PO TID PRN (Reason: nausea and vomiting) 3 Days Qty: 9 0RF No Action diltiazem HCl 60 mg tablet 60 mg PO QID PRN (Reason: arrhythmia) 0RF Strattera 60 mg Capsule 60 mg PO DAILY 0RF Motrin IB 200 mg tablet 400 mg PO Q6H PRN (Reason: pain) Qty: 60 0RF Discharge Orders: Discharge ED (Routine); Ordered 06/29/21 Ordered By: Darwin Michelle Referrals: Tameka Martinez DO [Primary Care Provider] - Discharge Diet: Advance as tolerated Discharge Activity: Increase activity as tolerated Patient Instructions: Gastroenteritis (ED) Activity Restrictions/Additional Instructions: Follow-up with medical provider as directed. Take medications as prescribed. Return to the ER or your medical provider if condition worsens. Please read and understand discharge instructions. If any questions ask please. Coding Level of Care Code ED Recordist Chief for [place] Fwd Exam Comprehensive Documented by User: Ruddy Jefferson DO 06/29/21 15:13 HPI - Nausea/Vomiting/Diarrhea General: Chief complaint: Abdominal Pain Stated complaint: vomiting Time Seen by Provider: 06/29/21 09:20 [facility] ED PFSH: Medical History Asperger syndrome Congenital anomaly Syncopal episodes Ulnar neuropathy at elbow of left upper extremity Dlnbk-Egxktyoer-Gpgur (WPW) pattern Surgical History No pertinent past surgical history Family History Other Psychiatric illness Denies family history of Diabetes CAD (coronary artery disease) Dementia Hyperlipidemia Chronic kidney disease (CKD) Anesthesia complication Bleeding disorder Family history of premature coronary artery disease Lung disease Cancer Hypertension Stroke Social History Smoking and tobacco status: never smoked Course Consultations: Consultation #1: This chart is being signed as part of the emergency department protocol. This patient was seen and evaluated by the midlevel clinician while in the emergency department. I was and attending physician present in the emergency department. I did not personally see or evaluate this patient. Vital Signs: Vital signs: Vital Signs Temperature 97.9 F 06/29/21 09:25 Pulse Rate 96 06/29/21 12:52 Respiratory Rate 18 06/29/21 12:52 Blood Pressure 105/76 06/29/21 12:52 Pulse Oximetry 95 06/29/21 12:52 MDM - Nausea/Vomiting/Diarrhea Lab Data : 06/29/21 10:37 06/29/21 10:37 Radiology Impressions Abdomen/Pelvis CT 06/29/21 11:01 IMPRESSION: No CT evidence of acute intra-abdominal or pelvic pathology. Laboratory Results WBC 21.6 10^3/uL (4.0-10.0) H 06/29/21 10:37 RBC 5.97 10^6/uL (4.1-5.3) H 06/29/21 10:37 Hgb 18.7 g/dL (11.5-15.3) H 06/29/21 10:37 Hct 56.7 % (37.0-47.0) H 06/29/21 10:37 MCV 95.0 fl (81-99) 06/29/21 10:37 MCH 31.3 pg (28.0-34.0) 06/29/21 10:37 MCHC 33.0 g/dL (30.0-36.0) 06/29/21 10:37 RDW 12.2 % (12.1-15.1) 06/29/21 10:37 Plt Count 240 10^3/cmm (130-400) 06/29/21 10:37 MPV 12.3 fL (7.4-10.4) H 06/29/21 10:37 Neut % (Auto) 95.0 % 06/29/21 10:37 Lymph % (Auto) 2.2 % 06/29/21 10:37 [place] % (Auto) 2.0 % 06/29/21 10:37 Eos % (Auto) 0.0 % 06/29/21 10:37 Baso % (Auto) 0.2 % 06/29/21 10:37 Neut # (Auto) 20.53 10^3/uL (1.8-7.7) H 06/29/21 10:37 Lymph # (Auto) 0.5 10^3/uL (0.8-4.8) L 06/29/21 10:37 [place] # (Auto) 0.4 10^3/uL (0.2-0.9) 06/29/21 10:37 Eos # (Auto) 0.0 10^3/uL (0.0-0.8) 06/29/21 10:37 Baso # (Auto) 0.0 10^3/uL (0.0-0.1) 06/29/21 10:37 Nucleated RBC % (auto) 0 % 06/29/21 10:37 Nucleated RBCs # 0.0 /100WBC 06/29/21 10:37 Sodium 136 mmol/L (136-145) 06/29/21 10:37 Potassium 4.5 mmol/L (3.5-5.1) 06/29/21 10:37 Chloride 96 mmol/L (98-107) L 06/29/21 10:37 Carbon Dioxide 23 mmol/L (22-29) 06/29/21 10:37 Anion Gap 21.5 (5-19) H 06/29/21 10:37 BUN 15 mg/dL (6-20) 06/29/21 10:37 Creatinine 0.6 mg/dL (0.5-0.9) 06/29/21 10:37 GFR Calculation 119.9 mL/min (90-130) 06/29/21 10:37 Glucose 131 mg/dL (65-115) H 06/29/21 10:37 Calculated Osmolality 285 mOsm/kg (285-295) 06/29/21 10:37 Calcium 9.7 mg/dL (8.5-10.5) 06/29/21 10:37 Total Bilirubin 0.5 mg/dL (0.15-1.2) 06/29/21 10:37 AST 30 U/L (0-32) 06/29/21 10:37 ALT 25 U/L (0-33) 06/29/21 10:37 Alkaline Phosphatase 102 IU/L (35-105) 06/29/21 10:37 Total Protein 9.5 g/dL (6.6-8.7) H 06/29/21 10:37 Albumin 5.7 g/dL (3.5-5.2) H 06/29/21 10:37 Globulin 3.8 g/dL (1.3-4.6) 06/29/21 10:37 Lipase 25 U/L (13-60) 06/29/21 10:37 HCG, Qual Cancelled 06/29/21 10:37 HCG, Qual Negative (Negative) 06/29/21 10:37 Urine Color Yellow (Yellow) 06/29/21 11:47 Urine Appearance Sl hazy (CLEAR) 06/29/21 11:47 Urine pH 5 (5-7) 06/29/21 11:47 Ur Specific [place] 1.025 (1.005-1.030) 06/29/21 11:47 Urine Protein Neg (Negative) 06/29/21 11:47 Urine Glucose (UA) Norm (Normal) 06/29/21 11:47 Urine Ketones 1+ (Negative) H 06/29/21 11:47 Urine Blood Neg (Negative) 06/29/21 11:47 Urine Nitrate Negative (Negative) 06/29/21 11:47 Urine Bilirubin 1+ (Negative) H 06/29/21 11:47 Urine Urobilinogen Norm mg/dL (Negative) 06/29/21 11:47 Ur Leukocyte Esterase Negative (Negative) 06/29/21 11:47 Urine RBC None /hpf (0-2) 06/29/21 11:47 Urine WBC Rare /hpf (0-5) 06/29/21 11:47 Ur Squamous Epith Cells 5-10 /hpf (0-5) H 06/29/21 11:47 Ur Transition Epith Cell 0-4 /hpf 06/29/21 11:47 Amorphous Sediment Not Reportable 06/29/21 11:47 Urine Bacteria 1+ /hpf (NONE) H 06/29/21 11:47 Urine Mucus 2+ /hpf 06/29/21 11:47 Discharge Plan Discharge Patient Disposition: Home Clinical Impression: Gastroenteritis Condition: Stable Prescriptions: New ondansetron HCl 4 mg tablet 4 mg PO TID PRN (Reason: nausea and vomiting) 3 Days Qty: 9 0RF No Action diltiazem HCl 60 mg tablet 60 mg PO QID PRN (Reason: arrhythmia) 0RF Strattera 60 mg Capsule 60 mg PO DAILY 0RF Motrin IB 200 mg tablet 400 mg PO Q6H PRN (Reason: pain) Qty: 60 0RF Discharge Orders: Discharge ED (Routine); Ordered 06/29/21 Ordered By: Darwin Michelle Referrals: Tameka Martinez, [Primary Care Provider] - Discharge Diet: Advance as tolerated Discharge Activity: Increase activity as tolerated Patient Instructions: Gastroenteritis (ED) Activity Restrictions/Additional Instructions: Follow-up with medical provider as directed. Take medications as prescribed. Return to the ER or your medical provider if condition worsens. Please read and understand discharge instructions. If any questions ask please. Coding Level of Care Code ED Recordist Chief for [place] Fwd Exam Comprehensive
[2021-06-29] MEDS: ondansetron 2 mg/ML SDV 2 mL 4 MG IVP (10:42)
[2021-06-29 10:43] LABS: Basophils % 0.2 %; Hematocrit 56.7 % (37.0-47.0); Hemoglobin 18.7 g/dL (11.5-15.3); Lymphocytes # 0.5 10^3/uL (0.8-4.8); Lymphocytes % 2.2 %; Mean Corpuscular Hemoglobin 31.3 pg (28.0-34.0); Mean Platelet Volume 12.3 fL (7.4-10.4); Monocytes # 0.4 10^3/uL (0.2-0.9); Neutrophils # 20.53 10^3/uL (1.8-7.7); Nucleated Red Blood Cells % 0 %; Platelet Count 240 10^3/cmm (130-400); Red Blood Count 5.97 10^6/uL (4.1-5.3); Red Cell Distribution Width 12.2 % (12.1-15.1); White Blood Count 21.6 10^3/uL (4.0-10.0)
[2021-06-29] MEDS: sodium chloride 0.9% 1,000 ML 999 ML IV (10:43)
[2021-06-29 11:00] VITALS: BP 113/79; PULSE 91; RESP 18; O2SAT 96
--- NOTE | 2021-06-29 11:01 | CTR_ITS ---
PROCEDURE INFORMATION: Exam: CT Abdomen And Pelvis With Contrast Exam date and time: 06/29/2021 11:53 AM Age: 26 years old Clinical indication: Pain and abnormal findings; Abnormal lab test; Elevated wbc; Abdominal pain; Generalized; Additional info: Pain , elevated wbc TECHNIQUE: Imaging protocol: Computed tomography of the abdomen and pelvis with contrast. Axial, coronal and sagittal reformatted images were created and reviewed. Radiation optimization: All CT scans at this facility use at least one of these dose optimization techniques: automated exposure control; mA and/or kV adjustment per patient size (includes targeted exams where dose is matched to clinical indication); or iterative reconstruction. Contrast material: OMNI 300; Contrast volume: 75 ml; Contrast route: INTRAVENOUS (IV); COMPARISON: CR Abdomen Series Acute [id number] 03/01/2015 4:22 PM RADIATION DOSE METRICS: Total DLP (mGy-cm): 622.67 FINDINGS: Liver: Unremarkable. Gallbladder and bile ducts: No radiodense gallstones. No biliary ductal dilatation. Pancreas: Unremarkable. Spleen: Unremarkable. Adrenal glands: Normal. No mass. Kidneys and ureters: No mass. No radiodense calculi. No hydronephrosis. Stomach and bowel: No bowel wall thickening. No obstruction. No pneumatosis. Appendix: Normal. Intraperitoneal space: No free fluid. No organized fluid collection. No free air. Arteries: Unremarkable. No abdominal aortic aneurysm. Lymph nodes: No pathologically enlarged lymph nodes. Urinary bladder: Unremarkable as visualized. Reproductive: Unremarkable. Bones/joints: No acute osseous abnormality. Pectus deformity. Soft tissues: Unremarkable. CT/CT abdomen pelvis w con* [id number] IMPRESSION: No CT evidence of acute intra-abdominal or pelvic pathology.
[2021-06-29 11:11] LABS: Alanine Aminotransferase 25 U/L (0-33); Albumin Level 5.7 g/dL (3.5-5.2); Alkaline Phosphatase 102 IU/L (35-105); Blood Urea Nitrogen 15 mg/dL (6-20); Calcium 9.7 mg/dL (8.5-10.5); Carbon Dioxide 23 mmol/L (22-29); Chloride 96 mmol/L (98-107); Globulin 3.8 g/dL (1.3-4.6); Glomerular Filtration Rate 119.9 mL/min (90-130); Glucose 131 mg/dL (65-115); Lipase 25 U/L (13-60); Osmolality Calculated 285 mOsm/kg (285-295); Sodium 136 mmol/L (136-145); Total Bilirubin 0.5 mg/dL (0.15-1.2); Total Protein 9.5 g/dL (6.6-8.7)
[2021-06-29 11:24] LABS: Anion Gap 21.5 (5-19); Aspartate Amino Transferase 30 U/L (0-32); Potassium 4.5 mmol/L (3.5-5.1)
[2021-06-29 11:33] LABS: HCG, Serum Qual Negative (Negative)
[2021-06-29] MEDS: iohexol 300 mg/mL 100 mL Btl IV (11:57)
[2021-06-29 12:00] VITALS: BP 108/77; PULSE 112; RESP 18; O2SAT 97
[2021-06-29 12:18] LABS: Add Urine Microscopic? YES; Bilirubin Urine 1+ (Negative); Blood Urine Neg (Negative); Glucose Urine UA Norm (Normal); Ketones Urine 1+ (Negative); Leukocyte Esterase Urine Negative (Negative); Nitrate Urine Negative (Negative); Protein Urine Neg (Negative); Specific Gravity, Urine 1.025 (1.005-1.030); Urine Appearance SL Hazy (CLEAR); Urine Color Yellow (Yellow); Urobilinogen Urine Norm (Negative); pH Urine 5 (5-7)
[2021-06-29 12:19] LABS: WBC Urine RARE /hpf (0-5)
[2021-06-29 12:20] LABS: Bacteria Urine 1+ /hpf; Mucus Urine 2+ /hpf; Transitional Epi Cells Urine 0-4 /hpf
[2021-06-29 12:21] LABS: Add Urine Culture? No
[2021-06-29 12:52] VITALS: BP 105/76; PULSE 96; RESP 18; O2SAT 95
== END 2021-06-29 12:53 | disposition home or self-care (01) ==
PROVIDERS: Emergency Provider Nurse Practitioner Family; PCP Internal Medicine
DX: K52.9 Noninfective gastroenteritis and colitis, unspecified (principal)
CPT/HCPCS: 74177; 80053; 81001; 83690; 84703; 85025; 96361; 96374; 99284; J2405; J7030; Q9967

== ENCOUNTER → 2022-03-19 13:51 | Outpatient (BNVA) | payer MEDICARE, MEDICAID, SELFPAY | PROVIDERS: PCP Internal Medicine; Visit Provider Nurse Practitioner | DX: Z13.6 Encounter for screening for cardiovascular disorders (principal); F84.5 Asperger's syndrome | CPT/HCPCS: 80053; 80061; 85025 ==

== ENCOUNTER 2024-04-23 20:54 | Emergency (ER) | payer MEDICARE, MEDICAID, SELFPAY ==
[2024-04-23 21:06] VITALS: BP 101/67; PULSE 64; RESP 17; TEMP 37.1; O2SAT 98; BMI 18.6
[2024-04-23 23:32] LABS: Basophils % 0.2 %; Eosinophils % 0.1 %; Hematocrit 41.1 % (36-47); Lymphocytes # 2.1 10^3/uL (0.8-4.8); Lymphocytes % 8.7 %; Mean Corpuscular HGB Conc 33.3 g/dL (30-55); Mean Corpuscular Hemoglobin 30.6 pg (27-33); Mean Corpuscular Volume 91.7 fl (85-98); Mean Platelet Volume 10.9 fL (7.4-10.4); Monocytes % 8.4 %; Neutrophils # 19.69 10^3/uL (1.8-7.7); Neutrophils % 82.1 %; Nucleated Red Blood Cells % 0 %; Platelet Count 362 10^3/cmm (157-399); Red Blood Count 4.48 10^6/uL (3.85-5.65); Red Cell Distribution Width 11.9 % (12.1-15.1); White Blood Count 23.99 10^3/uL (3.29-11.43)
[2024-04-23 23:46] LABS: Alanine Aminotransferase 16 U/L (0-33); Albumin Level 4.1 g/dL (3.5-5.2); Alkaline Phosphatase 89 U/L (35-105); Anion Gap 16.4 (5-19); Aspartate Amino Transferase 13 U/L (0-32); Blood Urea Nitrogen 12 mg/dL (6-20); C Reactive Protein 248.8 mg/L (0.0-4.9); Calcium 9.5 mg/dL (8.5-10.5); Carbon Dioxide 24 mmol/L (22-29); Chloride 96 mmol/L (98-107); Creatinine Clr Calc Pharmacy 67.3181; Globulin 3.9 g/dL (1.3-4.6); Glomerular Filtration Rate 98.3 mL/min (90-130); Glucose 111 mg/dL (65-115); HCG, Serum Qual Negative (Negative); Lipase 19 U/L (13-60); Osmolality Calculated 276 mOsm/kg (285-295); Potassium 3.4 mmol/L (3.5-5.1); Sodium 133 mmol/L (136-145); Total Bilirubin 0.6 mg/dL (0.15-1.2)
--- NOTE | 2024-04-24 00:40 | ED_ITS ---
HPI - Abdominal Pain 2 General: Chief Complaint: Abdominal Pain Stated Complaint: Possible Appendics Time Seen by Provider: 04/24/24 00:39 History of Present Illness: 29-year-old female complaining of left-s ided flank pain. She has had a cough. No dysuria. Pain does not seem to radiate. Unknown if has had a fever. No vomiting or diarrhea. Related Data Previous Rx's ?Medication ?Instructions ?Recorded diltiazem HCl 60 mg tablet 60 mg PO QID PRN arrhythmia #120 06/16/22 tabs sulfamethoxazole 800 1 tab PO BID 7 days #14 tabs 07/28/22 mg-trimethoprim 160 mg tablet (Bactrim DS) atomoxetine 60 mg capsule 60 mg PO DAILY #30 caps 10/04 (Strattera) azithromycin 250 mg tablet See Rx Instructions PO .COM PLEX #6 04/24/24 tabs cefdinir 300 mg capsule 300 mg PO BID #14 caps 04/24 hydrocodone 5 mg-acetaminophen 325 1 tab PO Q8H PRN pa in #7 tabs 04/24/24 mg tablet ketorolac 10 mg tablet 10 mg PO TID PRN pain #10 ta bs 04/24/24 Allergies Allergy/AdvReac Type Severity Reaction Status Date / Time No Known Allergies Allergy Verified 07/28/22 18:03 PFS ED 2 PFSH: Medical History Attention deficit disorder (ADD) Congenital anomaly Cehwe-Yvpovvyil-Humcx (WPW) pattern Syncopal episodes Asperger syndrome Ulnar neuropathy at elbow of left upper extremity Surgical History History of ear surgery History of radiofrequency ablation procedure for cardiac arrhythmia Family History Other Psychiatric illness Denies family history of Diabetes CAD (coronary artery disease) Dementia Hyperlipidemia Chronic kidney disease (CKD) Anesthesia complication Bleeding disorder Family history of premature coronary artery disease Lung disease Cancer Hypertension Stroke Social History Smoking and tobacco/nicotine status: never used tobacco/nicotine Second hand smoke exposure: No Alcohol intake: current Alcohol intake frequency: holidays/special occasions only Substance/Drug Use: never Adopted: Yes Caregiver/support person: Yes Lives independently: No Household members: foster family Housing: House Marital status: Single Number of children: 0 Number of grandchildren: 0 Highest education level completed: High School Graduate service: No Current occupational status: unemployed and disabled Pets and animals: Yes Do you think of yourself as: Straight/Heterosexual Current gender identity: Female Physical Exam 2 Const: COMMON NORMALS: no acute distress GENERAL APPEARANCE: cooperative; not ill appearing and not frail appearing HENMT: COMMON NORMALS: normocephalic, atraumatic and Normal external nose present HEAD & SCALP: normocephalic and atraumatic FACE & SINUS: normal facial exam and face symmetric NOSE: Normal external nose present Eye: COMMON NORMALS: Equal, round and reactive pupils present and EOMs intact bilaterally PUPIL: Yes Equal, round and reactive pupils present Neck/C-Spine: GENERAL: Yes trachea midline Chest: CHEST: Yes Symmetrical chest wall rise Resp: COMMON NORMALS: normal respiratory effort, No retractions, No use of accessory muscles and clear to auscultation bilaterally AUSCULTATION: clear to auscultation bilaterally Cardio: COMMON NORMALS: regular rate and regular rhythm RATE: regular rate RHYTHM: regular rhythm GI: COMMON NORMALS: Normal to inspection, nondistended, normoactive bowel sounds present : BLADDER/KIDNEY EXAM: Yes CVA tenderness on the left Back/Pelvis: GENERAL BACK: Yes CVA tenderness Extremity: COMMON NORMALS: no pedal edema Neuro: LUDIVINA COMA SCALE: document GCS findings Gilbert coma scale eye opening: Spontaneous Ludivina coma scale verbal response: Orientated Ludivina coma scale motor response: Obey commands Ludivina coma scale total score: 15 S ENSORY EXAM: Yes extremities (intact) Psych: COMMON NORMALS: speech normal SPEECH: Yes normal speech Skin: COMMON NORMALS: no rashes or lesions noted GENERAL SKIN EXAM: no rashes or lesions noted Course 2 Vital Signs: Vital signs: Vital Signs Temperature 98.7 F 04/23/24 21:06 Pulse Rate 82 04/24/24 02:49 Respiratory Rate 16 04/24/24 02:30 Blood Pressure 127/91 04/24/24 02:49 Pulse Oximetry 97 04/24/24 02:49 Oxygen Delivery Me thod Room Air 04/23/24 21:06 MDM - Abdominal Pain Medical Decision Making Patient is nontachycardic. She is normotensive. Afebrile. She is not requiring any oxygen. She does not appear short of breath. However, white blood cell count is 24. Her CRP is 249. Leukocyte esterase is negative. No hematuria. Chest x-ray and abdominal CT will show a left lower lobe pneumonia with consolidation. Blood cultures are taken here. She is given Rocephin IV here. She will be allowed discharge. Antibiotics. Symptom control. Return for worsening symptoms. Lab Data 04/23/24 23:22 04/23/24 23:22 Labs/Radiology: Radiology Impressions Abdomen/Pelvis CT 04/24/24 00:40 IMPRESSION: 1. Left lower lobe pneumonia. 2. Left ovarian cyst. Chest X-Ray 04/24/24 01:18 IMPRESSION: Left lower lobe pneumonia. Laboratory Results WBC 23.99 10^3/uL (3.29-11.43) H 04/23/24 23:22 RBC 4.48 10^6/uL (3.85-5.65) 04/23/24 23:22 Hgb 13.70 g/dL (11.27-16.99) 04/23/24 23:22 Hct 41.1 % (36-47) 04/23/24 23:22 MCV 91.7 fl (85-98) 04/23/24 23:22 MCH 30.6 pg (27-33) 04/23/24 23:22 MCHC 33.3 g/dL (30-55) 04/23/24 23:22 RDW 11.9 % (12.1-15.1) L 04/23/24 23:22 Plt Count 362 10^3/cmm (157-399) 04/23/24 23:22 MPV 10.9 fL (7.4-10.4) H 04/23/24 23:22 Neut % (Auto) 82.1 % 04/23/24 23:22 Lymph % (Auto) 8.7 % 04/23/24 23:22 [place] % (Auto) 8.4 % 04/23/24 23:22 Eos % (Auto) 0.1 % 04/23/24 23:22 Baso % (Auto) 0.2 % 04/23/24 23:22 Neut # (Auto) 19.69 10^3/uL (1.8-7.7) H 04/23/24 23:22 Lymph # (Auto) 2.1 10^3/uL (0.8-4.8) 04/23/24 23:22 [place] # (Auto) 2.0 10^3/uL (0.2-0.9) H 04/23/24 23:22 Eos # (Auto) 0.0 10^3/uL (0.0-0.8) 04/23/24 23:22 Baso # (Auto) 0.0 10^3/uL (0.0-0.1) 04/23/24 23:22 Nucleated RBC % (auto) 0 % 04/23/24 23:22 Nucleated RBCs # 0.0 /100WBC 04/23/24 23:22 Sodium 133 mmol/L (136-145) L 04/23/24 23:22 Potassium 3.4 mmol/L (3.5-5.1) L 04/23/24 23:22 Chloride 96 mmol/L (98-107) L 04/23/24 23:22 Carbon Dioxide 24 mmol/L (22-29) 04/23/24 23:22 Anion Gap 16.4 (5-19) 04/23/24 23:22 BUN 12 mg/dL (6-20) 04/23/24 23:22 Creatinine 0.7 mg/dL (0.5-0.9) 04/23/24 23:22 GFR Calculation 98.3 mL/min (90-130) 04/23/24 23:22 Glucose 111 mg/dL (65-115) 04/23/24 23:22 Calculated Osmolality 276 mOsm/kg (285-295) L 04/23/24 23:22 Lactic Acid 1.0 mmol/L (0.5-2.2) 04/24/24 01:34 Calcium 9.5 mg/dL (8.5-10.5) 04/23/24 23:22 Total Bilirubin 0.6 mg/dL (0.15-1.2) 04/23/24 23:22 AST 13 U/L (0-32) 04/23/24 23:22 ALT 16 U/L (0-33) 04/23/24 23:22 Alkaline Phosphatase 89 U/L (35-105) 04/23/24 23:22 C-Reactive Protein 248.8 mg/L (0.0-4.9) H 04/23/24 23:22 Total Protein 8.0 g/dL (6.6-8.7) 04/23/24 23:22 Albumin 4.1 g/dL (3.5-5.2) 04/23/24 23:22 Globulin 3.9 g/dL (1.3-4.6) 04/23/24 23:22 Lipase 19 U/L (13-60) 04/23/24 23:22 HCG, Qual Negative (Negative) 04/23/24 23:22 Urine Color Yellow (Yellow) 04/24/24 00:50 Urine Appearance Clear (CLEAR) 04/24/24 00:50 Urine pH 5.5 (5-7) 04/24/24 00:50 Ur Specific [place] 1.027 (1.005-1.030) 04/24/24 00:50 Urine Protein 1+ (Negative) A 04/24/24 00:50 Urine Glucose (UA) 3+ (Normal) H 04/24/24 00:50 Urine Ketones 1+ (Negative) H 04/24/24 00:50 Urine Blood Negative (Negative) 04/24/24 00:50 Urine Nitrate Negative (Negative) 04/24/24 00:50 Urine Bilirubin Negative (Negative) 04/24/24 00:50 Urine Urobilinogen 1.0 mg/dL (Negative) 04/24/24 00:50 Ur Leukocyte Esterase Negative (Negative) 04/24/24 00:50 Urine RBC 0-2 /hpf (0-2) 04/24/24 00:50 Urine WBC 0-5 /hpf (0-5) 04/24/24 00:50 Ur Squamous Epith Cells 6-10 /hpf (0-5) 04/24/24 00:50 Amorphous Sediment Not Reportable 04/24/24 00:50 Urine Bacteria Trace /hpf (NONE) 04/24/24 00:50 Hyaline Casts 2.87 /lpf 04/24/24 00:50 Coronavirus (PCR) Negative (Negative) 04/24/24 02:35 Influenza A (PCR) Negative (Negative) 04/24/24 02:35 Influenza Type B (PCR) Negative (Negative) 04/24/24 02:35 RSV (PCR) Negative (Negative) 04/24/24 02:35 All radiology interpretation(s) finalized by discharge Discharge Plan Discharge Patient Disposition: Home Clinical Impression: Pneumonia Qualifiers: Laterality: left Lung location: lower lobe of lung Condition: Stable Prescriptions: New cefdinir 300 mg capsule 300 mg PO BID Qty: 14 0RF azithromycin 250 mg tablet See Rx Instructions .ROUTE .COMPLEX Qty: 6 0RF Rx Instructions: For 250 mg dose pack: take 500 mg today (day 1), then 250 mg for 4 days (days 2-5) hydrocodone-acetaminophen 5-325 mg tablet 1 tab PO Q8H PRN (Reason: pain) Qty: 7 0RF ketorolac 10 mg tablet 10 mg PO TID PRN (Reason: pain) Qty: 10 0RF No Action diltiazem HCl 60 mg tablet 60 mg PO QID PRN (Reason: arrhythmia) Qty: 120 2RF sulfamethoxazole-trimethoprim [Bactrim DS] 800-160 mg tablet 1 tab PO BID 7 Days Qty: 14 0RF Strattera 60 mg capsule 60 mg PO DAILY Qty: 30 0RF Discharge Orders: Discharge ED (Routine); Ordered 04/24/24 Ordered By: Tad Gan Referrals: Dimple Díaz, [facility] [Primary Care Provider] - 1-3 days Patient Instructions: Pneumonia (ED), Opioid Safety, Pain Management Activity Restrictions/Additional Instructions: Antibiotics as directed. Watch for fevers and treat accordingly. Use pain medication as needed for significant pain related to the pneumonia. Return for worsening shortness of breath, worsening pain despite treatment, fever greater than 100 despite 2-3 doses of antibiotics, other concerning symptoms. Print Language: Ethiopian Coding Level of Care Code ED Driver Retraining Instructor for Mamta Pennington
--- NOTE | 2024-04-24 00:40 | CTR_ITS ---
PROCEDURE INFORMATION: Exam: CT Abdomen And Pelvis With Contrast Exam date and time: 04/24/2024 1:06 AM Age: 29 years old Clinical indication: Pain and abnormal findings; Abnormal lab test; Elevated wbc; Abdominal pain; Localized; Left sided abd pain. Wbc 24k. Crp 248. TECHNIQUE: Imaging protocol: Computed tomography of the abdomen and pelvis with contrast. Radiation optimization: All CT scans at this facility use at least one of these dose optimization techniques: automated exposure control; mA and/or kV adjustment per patient size (includes targeted exams where dose is matched to clinical indication); or iterative reconstruction. Contrast material: OMNI 350; Contrast volume: 80 ml; Contrast route: INTRAVENOUS (IV); COMPARISON: CT abdomen pelvis w con* [id number] 06/29/2021 11:53 AM RADIATION DOSE METRICS: Total DLP (mGy-cm): 760.68 FINDINGS: Lungs: Consolidative airspace disease present in the left lower lobe. Diaphragm: There is a small hiatal hernia containing mesenteric fat only. Liver: Normal. No mass. Gallbladder and biliary ducts: Normal. No calcified stones. No ductal dilation. Pancreas: Normal. No ductal dilation. Spleen: Normal. No splenomegaly. Adrenal glands: Normal. No mass. Kidneys and ureters: Normal. No hydronephrosis. Stomach and bowel: Unremarkable. No obstruction. No mucosal thickening. Appendix: No evidence of appendicitis. Intraperitoneal space: See Diaphragm finding. Vasculature: Unremarkable. No abdominal aortic aneurysm. Lymph nodes: Unremarkable. No enlarged lymph nodes. Urinary bladder: Unremarkable as visualized. Reproductive: There is a left ovarian cyst measuring 2 cm. The left ovary is tacked along the left pelvic sidewall. The uterus is surgically absent. Bones/joints: Unremarkable. No acute fracture. Soft tissues: Unremarkable. CT/CT abdomen pelvis w con* [id number] IMPRESSION: 1. Left lower lobe pneumonia. 2. Left ovarian cyst.
[2024-04-24] MEDS: iohexol 350 mg/mL 500 mL Btl (per mL) IV (01:10)
[2024-04-24 01:13] LABS: Bilirubin Urine Negative (Negative); Blood Urine Negative (Negative); Glucose Urine UA 3+ (Normal); Ketones Urine 1+ (Negative); Leukocyte Esterase Urine Negative (Negative); Nitrate Urine Negative (Negative); Protein Urine 1+ (Negative); Specific Gravity, Urine 1.027 (1.005-1.030); Urine Appearance Clear (CLEAR); Urine Color Yellow (Yellow); pH Urine 5.5 (5-7)
[2024-04-24] MEDS: morphine 4 mg/mL SDV 1 mL IVP (01:17)
[2024-04-24] MEDS: ondansetron 2 mg/ML SDV 2 mL 4 MG IVP (01:17)
[2024-04-24] MEDS: ketorolac 30 mg/mL INJ IVP (01:17)
[2024-04-24 01:18] LABS: Add Urine Microscopic? YES; Bacteria Urine Trace /hpf; Hyaline Casts Urine 2.87 /lpf; RBC Urine 0-2 /hpf (0-2); WBC Urine 0-5 /hpf (0-5)
--- NOTE | 2024-04-24 01:18 | XRR_ITS ---
PROCEDURE INFORMATION: Exam: XR Chest Exam date and time: 04/24/2024 1:20 AM Age: 29 years old Clinical indication: Abnormal findings; Abnormal diagnostic tests; Abnormal ekg; Prior surgery; Surgery date: 6+ months; Surgery type: Surgery for congenital heart defect. PT unable to specify. Cough with wbc of 24k. TECHNIQUE: Imaging protocol: Radiologic exam of the chest. Views: 1 view. COMPARISON: CT chest w con* [id number] 10/15/2019 7:27 PM FINDINGS: Lungs: Left retrocardiac airspace disease present. Otherwise, the lungs are clear. Pleural spaces: Unremarkable. No pleural effusion. No pneumothorax. Heart/Mediastinum: Unremarkable. No cardiomegaly. Bones/joints: Unremarkable. XR/XR chest 1V portable [id number] IMPRESSION: Left lower lobe pneumonia.
[2024-04-24] MEDS: cefTRIAXone 1,000 mg SDV 1000 MG IVP (01:34)
[2024-04-24 02:30] VITALS: BP 127/91; PULSE 84; RESP 16; O2SAT 98
[2024-04-24 02:49] VITALS: BP 127/91; PULSE 82; O2SAT 97
[2024-04-24 03:24] LABS: Covid PCR NEGATIVE (Negative); Influenza A NEGATIVE (Negative); Influenza B NEGATIVE (Negative); Respiratory Syncytial Virus Ce NEGATIVE (Negative)
== END 2024-04-24 02:50 | disposition home or self-care (01) ==
PROVIDERS: Emergency Provider Emergency Medicine; PCP Nurse Practitioner
DX: J18.9 Pneumonia, unspecified organism (principal); Z11.52 Encounter for screening for COVID-19
CPT/HCPCS: 36415; 71045; 74177; 80053; 81001; 83605; 83690; 84703; 85025; 86140; 87040; 87637; 96374; 96375; 99285; J0696; J1885; J2270; J2405